=== PATIENT | male | born 1965 | race Caucasian/White ===

== ENCOUNTER 2021-02-26 14:24 | Emergency (ER) | payer BC, OTHER ==
[2021-02-26] MEDS ORDERED: HYDROmorphone 1 MG/ML Syringe IVPUSH ONE (14:32)
[2021-02-26] MEDS ORDERED: Sodium Chloride 0.9% 2.5 ML Syringe FLUSH PRN (14:33)
[2021-02-26] MEDS ORDERED: Ondansetron 4 MG/2 ML SDV IVPUSH ONE (14:33)
[2021-02-26] MEDS ORDERED: Sodium Chloride 0.9% 1,000 ML IV ONE (14:33)
[2021-02-26] MEDS ORDERED: Sodium Chloride 0.9% 10 ML Syringe FLUSH PRN (14:33)
[2021-02-26] MEDS ORDERED: Iopamidol 755 MG/ML 500 ML Multipack Bottle IVPUSH STA (14:49)
--- NOTE | 2021-02-26 15:26 | CT ---
INDICATION: Status post trauma. Struck by a ladder in the abdomen. COMPARISON: None available TECHNIQUE: : CT examination of the chest was performed with the uneventful intravenous administration of 100 cc of Isovue 370 while 3 mm thick axial sections were obtained from above the apices of the lungs to the lung bases. Please note that all CT scans at this facility use dose modulation, iterative reconstruction, and/or weight-based dosing when appropriate to reduce radiation dose to as low as reasonably achievable. FINDINGS: : There is no sign of traumatic injury to the chest, with no sign of pneumothorax, pleural effusion, pleural hematoma, or pulmonary contusion. There is a tubular area of density in the anterior-lateral subpleural anterior segment of the right lower lobe, measuring 10 x 4 millimeters on axial image 92 series 202, probably an area of scarring from previous inflammatory disease. There is mild linear density in the adjacent inferior-lateral lingula which is probably also scarring. The rest of the lungs are clear. There is satisfactory enhancement of the central pulmonary arteries with no sign of pulmonary embolism. There is no sign of mediastinal or hilar mass or adenopathy. There is mild calcification of the proximal LCX coronary artery. The heart is otherwise normal in appearance for the patient`s age, as are the aorta and other ascending great vessels. There is no sign of supraclavicular or axillary mass or adenopathy. The visualized superior liver, spleen, pancreas, kidneys, and adrenals are normal in appearance. There is an old, ununited fracture of the tip of the T1 spinous process. The fragments are well corticated, with no sign of acute fracture. There is moderate central calcification of the T12-L1 disc space. There is no sign of any acute fracture of the thoracic spine, with normal height and alignment of the vertebral bodies and normal appearance of the posterior elements, aside from the old, ununited spinous process fracture at T1 described above. There is no sign of fracture of the sternum, manubrium, ribs, or visualized shoulder girdle. IMPRESSION: No sign of acute traumatic injury to the chest. Old, ununited fracture of the tip of the T1 spinous process. Tubular area of density in the anterior-lateral subpleural left lower lobe toward the lung base, probably an area of scarring from previous inflammatory disease. Please note that all CT scans at this facility use dose modulation, iterative reconstruction, and/or weight-based dosing when appropriate to reduce radiation dose to as low as reasonably achievable. Dictated by Mohit Jasmine MD @ 02/26/2021 3:26:[address] Mohit Jasmine @ Feb 26 2021 3:26PM
[2021-02-26 15:33] LABS: BLOOD UREA NITROGEN,BUN 8 mg/dL (7.0-18.0); CARBON DIOXIDE,CO2 25.3 mmol/L (21.0-32.0); CHLORIDE,CL 102 mmol/L (98-107); GLUCOSE RANDOM 87 mg/dL (74-106); POTASSIUM,K 4.3 mmol/L (3.5-5.1); SODIUM,NA 139 mmol/L (136-148)
--- NOTE | 2021-02-26 15:39 | CT ---
INDICATION: Impaled in the abdomen by a ladder, pushed by a bobcat. Pain. COMPARISON: CT of the chest from today. No older studies available for comparison. TECHNIQUE: CT examination of the abdomen and pelvis was performed with the uneventful intravenous administration of Isovue 370 as part of the accompanying CT of the chest while 3 mm thick axial sections were obtained from the lung bases through the pubic symphysis. Oral contrast was not administered. Please note that all CT scans at this facility use dose modulation, iterative reconstruction, and/or weight-based dosing when appropriate to reduce radiation dose to as low as reasonably achievable. FINDINGS: There is no sign of any soft tissue contusion of the abdominal or pelvic wall. In the abdomen, the liver, spleen, pancreas, and adrenals are normal in appearance. The kidneys are normal in appearance. The gallbladder is normal in appearance. The abdominal aorta is normal in caliber with no sign of dilatation. There is no sign of retroperitoneal mass or adenopathy. The stomach, loops of small bowel, and colon in the abdomen are normal in appearance. In the pelvis, the appendix is normal in appearance with no sign of inflammatory process. The loops of small bowel and colon in the pelvis are normal in appearance. The prostate is moderately enlarged and is otherwise normal in appearance. The urinary bladder is normal in appearance. There is no sign of pelvic or inguinal mass or adenopathy. There is no sign of free air or free fluid in the abdomen or pelvis. Again seen is the tubular 10 x 4 millimeter subpleural nodule in the anterior-lateral aspect of the anterior segment of the left lower lobe toward the lung base on axial image 11 series 207. This is probably scarring from previous inflammatory disease. Again seen is mild linear atelectasis in the adjacent anterior-lateral inferior lingula. The lung bases are otherwise clear. There is no sign of acute osseous injury to the lumbar spine, pelvis, or hips. There is mild L4-5 and L5-S1 disc degenerative disease. There is moderate central ossification of the T12-L1 disc space. 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 There is minimal scoliosis of the lumbar spine convex towards the right. IMPRESSION: No sign of traumatic injury to the abdomen or pelvis. Normal CT of the abdomen with contrast CT of the pelvis shows moderate enlargement of the prostate. Please note that all CT scans at this facility use dose modulation, iterative reconstruction, and/or weight-based dosing when appropriate to reduce radiation dose to as low as reasonably achievable. Dictated by Mohit Jasmine MD @ 02/26/2021 3:36:[address] Mohit Jasmine @ Feb 26 2021 3:36PM
[2021-02-26] MEDS ORDERED: Ketorolac 30 MG/ML SDV IVPUSH ONE (15:43)
--- NOTE | 2021-02-26 15:51 | EDM.PDOC ---
ED HPI GENERAL MEDICAL PROBLEM - General Chief Complaint: Trauma Stated Complaint: TRAUMA Time Seen by Provider: 02/26/21 14:35 - History of Present Illness INITIAL COMMENTS - FREE TEXT/NARRATIVE: HISTORY AND PHYSICAL: History of present illness: This is a 55-year-old gentleman who presented to the ER today as a trauma alert secondary to blunt trauma to his xiphoid/midsternal region with a ladder. Per patient's description, he was lifting a ladder out of a hole when a backhoe hit the top portion of the ladder causing the bottom portion of the ladder that was nestled up against his body to thrust him forward approximately 3 feet in the air. Patient presented to the ED complaining of severe pain in that region. Patient denies any head injury or head trauma. Patient reports that he landed he landed on his anterior chest wall. Patient denies any neck pain or back pain. Patient denies any abdominal pain hip pain upper or lower extremity pain. Patient denies any loss of consciousness. Patient has a history of hypertension, denies any diabetes, liver, lung, kidney problems. Patient denies any alcohol or drugs. Patient has no known drug allergies Review of systems: As per history of present illness and below otherwise all systems reviewed and negative. Past medical history: As per history of present illness and as reviewed below otherwise noncontributory. Surgical history: As per history of present illness and as reviewed below otherwise noncontributory. Social history: No reported history of drug abuse. Family history: As per history of present illness and as reviewed below otherwise noncont ributory. Physical exam: This patient was seen and evaluated during the 2019 SARS-CoV-2 novel coronavirus pandemic period. Community viral transmission is ongoing at time of this encounter and the emergency department is operating under pandemic response procedures. Constitutional: Patient is oriented to person, place, and time. Appears well- developed and well-nourished. No distress. HEENT: Moist mucous membranes Head: Normocephalic and atraumatic Eyes: Right eye exhibits no discharge. Left eye exhibits no discharge. No scleral icterus Neck: Normal range of motion. No tracheal deviation present. Cardiovascular: Normal rate and regular rhythm. Pulmonary: Effort normal, no respiratory distress. No wheezing rales or rhonchi. Abdominal: No distention Musculoskeletal: Normal range of motion Neurologic: Alert and oriented to person, place and time. Skin: Becker, warm and dry. Psychiatric: Normal mood and affect. Behavior is normal. Judgment and thought content normal. Nursing note and vital signs have been reviewed Patient has no C-spine T-spine or L-spine tenderness to palpation. Patient has no left upper or right upper quadrant tenderness to palpation. Patient has no crepitus to palpation to the anterior chest wall. Patient is neurologically intact. Patient does not present with any signs or or symptoms that would be consistent with acute intracranial, intra-abdominal, intrathoracic, or long bone injury. All long bones have been palpated and range of motion been performed and there is no evidence of any acute pathology. Patient with tenderness to palpation to his mid epigastric/xiphoid region. No bony deformity. Diagnostics: EKG: As interpreted by ER physician: Damian: Nonspecific ST-T wave abnormalities Normal axis No evidence of ST elevation IA Normal sinus rhythm heart rate of 83 CT scan of the abdomen chest and pelvis with IV contrast reveals no evidence of acute pathology from trauma. Therapeutics: Toradol 15 mg IV Patient refusing other pain medicines. Patient refusing NSS Assessment and plan: 55-year-old gentleman who presents ER today secondary to severe pain to his mid xiphoid region after blunt trauma with a letter to that area. Patient's ER work-up is been unremarkable. Patient is requesting to be discharged home at this time. Patient does not wish for any further observation. Patient CT scan of his chest, abdomen, pelvis reveals no significant pathology from trauma. Patient did agree to a dose of IV Toradol and I will give a prescription for [place]. Patient reports that his pain currently is a 2 out of 10. Reassessment at the time of disposition demonstrates that the patient is in no acute distress. The patient has remained stable throughout the entire ED visit and is without objective evidence for acute process requiring urgent intervention or hospitalization. The patient is stable for discharge, counseling is provided as documented above, discussed symptomatic treatment and specific conditions for return. I have spoken with the patient/caregiver and discussed todays findings, in addition to providing specific details for the plan of care. Questions are answered and there is agreement with the plan. Definitive disposition and diagnosis as appropriate pending reevaluation and review of above. pain to abdomen Pain Score (Numeric/FACES): 4 - Related Data Allergies Allergy/AdvReac Type Severity Reaction Status Date / Time No Known Allergies Allergy Verified 02/26/21 14:45 Home Meds: Home Meds Acetaminophen/HYDROcodone [[place] 325-5 MG] 1 - 2 tab PO Q4H #15 tablet 02/26/21 [Rx] Acetaminophen/oxyCODONE [Percocet 325-5 MG] 1 each PO QID PRN #12 tab 02/26/21 [Rx] atorvaSTATin [Lipitor] 20 mg PO BEDTIME 02/26/21 [History] lisinopriL [Lisinopril] 10 mg PO DAILY 02/26/21 [History] Past Medical History Cardiovascular History: Reports: High Cholesterol, Hypertension - Infectious Disease History Infectious Disease History: Reports: Chicken Pox - Past Surgical History Musculoskeletal Surgical History: Reports: Other (See Below) Other Musculoskeletal Surgeries/Procedures:: right knee surgery Social & Family History - Family History Family Medical History: No Pertinent Family History - Tobacco Use Tobacco Use Status *Q: Current Every Day Tobacco User Years of Tobacco use: 10 Packs/Tins Daily: 1 - Caffeine Use Caffeine Use: Reports: Soda - Recreational Drug Use Recreational Drug Use: Yes Recreational Drug Type: Reports: Marijuana/Hashish Recreational Drug Use Frequency: Daily Review of Systems - Review of Systems Review Of Systems: See Below ED EXAM, GENERAL - Physical Exam Exam: See Below Course - Vital Signs Last Recorded V/S: Last Vital Signs Temp 97.9 F 02/26/21 14:25 Pulse 103 H 02/26/21 14:25 Resp 22 H 02/26/21 14:25 BP 140/100 H 02/26/21 14:25 Pulse Ox 98 02/26/21 14:25 - Orders/Labs/Meds Orders: Active Orders 24 hr Category Date Time Status EKG Documentation Completion [RC] AM Care 02/26/21 14:33 Active TYPE AND SCREEN [BBK] Stat Lab 02/26/21 14:55 Received UA W/ELIGIO RFLX IF INDICATED [URIN] Stat Lab 02/26/21 14:33 Ordered Sodium Chloride 0.9% [Saline Flush] Med 02/26/21 14:33 Active 10 ml FLUSH ASDIRECTED PRN Sodium Chloride 0.9% [Saline Flush] Med 02/26/21 14:33 Active 2.5 ml FLUSH ASDIRECTED PRN Saline Lock Insert [OM.PC] Stat Oth 02/26/21 14:33 Ordered Medication Orders Sodium Chloride (Sodium Chloride 0.9% 10 Ml Syringe) 10 ml FLUSH ASDIRECTED PRN PRN Reason: Keep Vein Open Sodium Chloride (Sodium Chloride 0.9% 2.5 Ml Syringe) 2.5 ml FLUSH ASDIRECTED PRN PRN Reason: Keep Vein Open Labs: Laboratory Tests 02/26/21 02/26/21 02/26/21 Range/Units 14:25 14:30 14:55 WBC 8.58 (4.0-11.0) K/uL RBC 5.04 (4.50-5.90) M/uL Hgb 16.6 (13.0-17.0) g/dL Hct 46.6 (38.0-50.0) % MCV 92.5 (80.0-98.0) fL MCH 32.9 H (27.0-32.0) pg MCHC 35.6 (31.0-37.0) g/dL RDW Std Deviation 43.6 (28.0-62.0) fl RDW Coeff of [place] 13 (11.0-15.0) % Plt Count 285 (150-400) K/uL MPV 9.90 (7.40-12.00) fL Neut % (Auto) 67.1 (48.0-80.0) % Lymph % (Auto) 24.8 (16.0-40.0) % [place] % (Auto) 7.5 (0.0-15.0) % Eos % (Auto) 0.5 (0.0-7.0) % Baso % (Auto) 0.1 (0.0-1.5) % Neut # (Auto) 5.8 H (1.4-5.7) K/uL Lymph # (Auto) 2.1 (0.6-2.4) K/uL [place] # (Auto) 0.6 (0.0-0.8) K/uL Eos # (Auto) 0.0 (0.0-0.7) K/uL Baso # (Auto) 0.0 (0.0-0.1) K/uL Nucleated RBC % 0.0 /100WBC Nucleated RBCs # 0 K/uL INR 1.08 APTT 22.5 (18.6-31.3) SEC Sodium 139 (136-148) mmol/L Potassium 4.3 (3.5-5.1) mmol/L Chloride 102 (98-107) mmol/L Carbon Dioxide 25.3 (21.0-32.0) mmol/L BUN 8 (7.0-18.0) mg/dL Creatinine 1.3 (0.8-1.3) mg/dL Est Cr Clr Drug Dosing 68.81 mL/min Estimated GFR (MDRD) 56.9 ml/min Glucose 87 (74-106) mg/dL Calcium 9.5 (8.5-10.1) mg/dL Total Bilirubin 0.7 (0.2-1.0) mg/dL AST 28 (15-37) IU/L ALT 26 (14-63) IU/L Alkaline Phosphatase 59 (46-116) U/L Troponin I < 0.050 (0.000-0.056) ng/mL Total Protein 7.9 (6.4-8.2) g/dL Albumin 3.9 (3.4-5.0) g/dL Globulin 4.0 (2.6-4.0) g/dL Albumin/Globulin Ratio 1.0 (0.9-1.6) Meds: Medications Generic Name Dose Route Start Last Admin Trade Name Freq PRN Reason Stop Dose Admin Sodium Chloride 10 ml 02/26/21 14:33 Sodium Chloride 0.9% 10 Ml Syringe FLUSH ASDIRECTED PRN Keep Vein Open Sodium Chloride 2.5 ml 02/26/21 14:33 Sodium Chloride 0.9% 2.5 Ml Syringe FLUSH ASDIRECTED PRN Keep Vein Open Discontinued Medications Generic Name Dose Route Start Last Admin Trade Name Freq PRN Reason Stop Dose Admin Hydromorphone HCl 1 mg 02/26/21 14:32 02/26/21 14:57 Hydromorphone 1 Mg/Ml Syringe IVPUSH 02/26/21 14:33 Not Given ONETIME ONE Sodium Chloride 1,000 mls @ 999 mls/hr 02/26/21 14:33 02/26/21 14:57 Normal Saline IV 02/26/21 15:33 Not Given .Bolus ONE Iopamidol 100 ml 02/26/21 14:49 02/26/21 14:49 Iopamidol 755 Mg/Ml 500 Ml Multipack Bottle IVPUSH 02/26/21 14:50 100 ml ONETIME STA Administration Ketorolac Tromethamine 15 mg 02/26/21 15:43 Ketorolac 30 Mg/Ml Sdv IVPUSH 02/26/21 15:44 ONETIME ONE Ondansetron HCl 4 mg 02/26/21 14:33 02/26/21 14:57 Ondansetron 4 Mg/2 Ml Sdv IVPUSH 02/26/21 14:34 Not Given ONETIME ONE Departure - Departure Time of Disposition: 15:53 Disposition: Home, Self-Care 01 Condition: Good Clinical Impression: Acute traumatic injury of chest wall - Discharge Information Instructions: Blunt Chest Trauma Referrals: Gary Gilbert MD [Primary Care Provider] - Additional Instructions: You were seen and evaluated in the ER today secondary to acute blunt trauma to your chest wall. The CT scan of your chest abdomen pelvis were all negative for any evidence of acute trauma. You likely have a severe bruise to your xiphoid process and chest wall. You will be given a prescription for [place] to assist you with your pain if you should needed. You can also take ibuprofen [id number], 3 pills every 6 hours as needed for pain. [facility] [place] [address] The following information is given to patients seen in the emergency department who are being discharged to home. This information is to outline your options for follow-up care. We provide all patients seen in our emergency department with a follow-up referral. The need for follow-up, as well as the timing and circumstances, are variable depending upon the specifics of your emergency department visit. If you don't have a primary care physician on staff, we will provide you with a referral. We always advise you to contact your personal physician following an emergency department visit to inform them of the circumstance of the visit and f or follow-up with them and/or the need for any referrals to a consulting specialist. The emergency department will also refer you to a specialist when appropriate. This referral assures that you have the opportunity for follow-up care with a specialist. All of these measure are taken in an effort to provide you with optimal care, which includes your follow-up. Under all circumstances we always encourage you to contact your private physician who remains a resource for coordinating your care. When calling for follow-up care, please make the office aware that this follow-up is from your recent emergency room visit. If for any reason you are refused follow-up, please contact the [facility] Emergency Department at and asked to speak to the emergency department charge nurse. [facility] [address] [place] [id number] [facility] [address] [place] [address] Sepsis Event Note (ED) - Evaluation Sepsis Screening Result: No Definite Risk - Focused Exam Vital Signs: Vital Signs Temp Pulse Resp BP Pulse Ox 02/26/21 14:25 97.9 F 103 H 22 H 140/100 H 98 - My Orders Last 24 Hours: My Active Orders 02/26/21 14:33 EKG Documentation Completion [RC] AM UA W/ELIGIO RFLX IF INDICATED [URIN] Stat Sodium Chloride 0.9% [Saline Flush] 10 ml FLUSH ASDIRECTED PRN Sodium Chloride 0.9% [Saline Flush] 2.5 ml FLUSH ASDIRECTED PRN Saline Lock Insert [OM.PC] Stat 02/26/21 14:55 TYPE AND SCREEN [BBK] Stat - Assessment/Plan Last 24 Hours: My Active Orders 02/26/21 14:33 EKG Documentation Completion [RC] AM UA W/ELIGIO RFLX IF INDICATED [URIN] Stat Sodium Chloride 0.9% [Saline Flush] 10 ml FLUSH ASDIRECTED PRN Sodium Chloride 0.9% [Saline Flush] 2.5 ml FLUSH ASDIRECTED PRN Saline Lock Insert [OM.PC] Stat 02/26/21 14:55 TYPE AND SCREEN [BBK] Stat
== END 2021-02-26 16:11 | disposition home or self-care (01) ==
LOC: MW.ED 14:24
DX: S29.9XXA Unspecified injury of thorax, initial encounter (principal); I10 Essential (primary) hypertension; E78.00 Pure hypercholesterolemia, unspecified; Z79.899 Other long term (current) drug therapy; Z72.0 Tobacco use; W22.8XXA Striking against or struck by other objects, initial encounter
CPT/HCPCS: 36415; 71260; 74177; 80053; 84484; 85025; 85610; 85730; 86850; 86900; 86901; 93005; 96374; 99284; J1885; Q9967

== ENCOUNTER 2024-05-25 07:10 | Emergency (ER) | payer BC ==
[2024-05-25] MEDS: Tetracaine HCl/PF 0.5% 4 ML Bottle EYELF ONE (07:41)
== END 2024-05-25 08:15 | disposition home or self-care (01) ==
LOC: MW.ED 07:10
DX: H00.15 Chalazion left lower eyelid (principal); I10 Essential (primary) hypertension; Z79.899 Other long term (current) drug therapy
CPT/HCPCS: 99283; J3490